=== PATIENT | male | born 1965 | race Caucasian/White ===

== ENCOUNTER 2017-04-06 08:04 | Emergency (ER) | payer OTHER, BC ==
[2017-04-06 09:43] LABS: EOSINOPHIL (%) 0.5 % (0-5); EOSINOPHIL COUNT 0.1 K/uL (0-0.3); HEMATOCRIT 42.9 % (38.0-50.0); IMMATURE GRANULOCYTE (%) 0.4 % (0.0-0.7); IMMATURE GRANULOCYTE COUNT 0.1 K/uL; INSTRUMENT ABS NEUTROPHIL CT 11.3 K/uL; LYMPHOCYTE COUNT 1.1 K/uL (1.0-2.8); MCH 27.5 PG (29.0-34.0); MCHC 33.3 G/DL (30.0-36.0); MCV 82.5 FL (86-99); MEAN PLAT.VOLUME 11.1 uM^3 (9.0-12.4); MONOCYTE (%) 6.6 % (3-12); MONOCYTE COUNT 0.9 K/uL (0-0.8); NEUTROPHIL (%) 83.8 % (45-76); NEUTROPHIL COUNT 11.3 K/uL (1.8-6.4); PLATELET COUNT 216 K/uL (156-360); RBC DIS.WIDTH-CV 13.4 % (11.8-14.6); RBC DIS.WIDTH-SD 40.6 % (39-53); WHITE BLOOD COUNT 13.5 K/uL (4.1-10.2)
[2017-04-06 09:53] LABS: AMYLASE 30 IU/L (1-118); CHLORIDE 104 mEq/L (99-109); SODIUM 137 mEq/L (136-147)
[2017-04-06 09:55] LABS: GLUCOSE 112 mg/dL (70-99)
[2017-04-06 09:56] LABS: ANION GAP 8 MEQ/L (2-14)
[2017-04-06 09:58] LABS: SERUM ETHYL ALCOHOL < 10 mg/dL
[2017-04-06 09:59] LABS: GFR ESTIMATE (CALCULATED) > 59 mL/min/ (58.99-99999)
[2017-04-06 10:00] LABS: UREA NITROGEN (BUN) 15 mg/dL (9-23)
[2017-04-06 10:02] LABS: LIPASE 11 U/L (1.0-51.0)
[2017-04-06] MEDS ORDERED: PERCOCET 5/31 TABLET PO (12:28)
== END 2017-04-06 13:30 | disposition home or self-care (01) ==
LOC: EME → TRA 08:04 → EME 08:04 → TRA 13:30
PROVIDERS: Emergency Medicine
DX: S52.502A Unspecified fracture of the lower end of left radius, initial encounter for closed fracture (principal); S93.04XA Dislocation of right ankle joint, initial encounter; V49.40XA Driver injured in collision with unspecified motor vehicles in traffic accident, initial encounter; Y92.411 Interstate highway as the place of occurrence of the external cause; R10.32 Left lower quadrant pain; S30.811A Abrasion of abdominal wall, initial encounter; S60.512A Abrasion of left hand, initial encounter; S60.511A Abrasion of right hand, initial encounter; S50.812A Abrasion of left forearm, initial encounter; S50.811A Abrasion of right forearm, initial encounter; F41.9 Anxiety disorder, unspecified; I48.91 Unspecified atrial fibrillation; Z88.0 Allergy status to penicillin
CPT/HCPCS: 70450; 70486; 71260; 72125; 73110; 73120; 73590; 73610; 74177; 80048; 81003; 82150; 83690; 85025; 86850; 86900; 86901; 99281; 99285; G0480; J2405; J3010